=== PATIENT | male | born 1990 | race American Indian/Alaskan Native ===

== ENCOUNTER 2017-01-24 06:35 | Emergency (ER) | payer SELFPAY ==
[2017-01-24 07:05] VITALS: BP 129/71
--- NOTE | 2017-01-24 08:15 | Emergency Department Report ---
HPI - General Chief Complaint: Back Pain/Injury Time Seen by Provider: 01/24/17 07:50 - HPI HPI: he is a 26-year-old male with no prior medical condition presents to ED complaining of throbbing a cane showed a back pain right sided that initially started in September. Patient states he is back shoulder began hurting about 2 days ago. Patient states he has not had any trauma recently or strenuous activity. Patient states he most likely moves his hand a lot at work. Patient states pain is aggravated with movement of the right arm. He denies any fever/chills/vomiting/back pain/abdominal pain ED Past Medical Hx - Past Medical History Previous Medical History?: No - Surgical History Past Surgical History?: No - Social History Smoking Status: Unknown if ever smoked Substance Use Type: None - Medications Home Medications: Home Medications Medication Instructions Recorded Confirmed Last Taken Type Cyclobenzaprine [Flexeril] 10 mg PO QHS PRN #20 tablet 01/24/17 Unknown Rx Ibuprofen [Motrin] 800 mg PO Q8HR PRN #30 tablet 01/24/17 Unknown Rx ED Review of Systems ROS: Stated complaint: BACK PAIN Other details as noted in HPI Constitutional: denies: chills, fever Eyes: denies: eye pain, eye discharge, vision change ENT: denies: ear pain, throat pain Respiratory: denies: cough, shortness of breath, wheezing Cardiovascular: denies: chest pain, palpitations Endocrine: no symptoms reported Gastrointestinal: denies: abdominal pain, nausea, diarrhea Genitourinary: denies: urgency, dysuria Musculoskeletal: myalgia. denies: back pain, joint swelling, arthralgia Skin: denies: rash, lesions Neurological: denies: headache, weakness, paresthesias Psychiatric: denies: anxiety, depression Hematological/Lymphatic: denies: easy bleeding, easy bruising Physical Exam - Physical Exam Vital Signs: Vital Signs 01/24/17 01/24/17 07:03 07:06 Temperature 97.9 F 97.9 F Pulse Rate 71 79 Respiratory 18 18 Rate Blood Pressure 129/71 129/71 O2 Sat by Pulse 97 96 Oximetry Physical Exam: GENERAL: Alert and oriented x3, no apparent distress, Normal Gait, atraumatic. HEAD: Head is normocephalic and a-traumatic. NECK: Supple. Non edematous, . No lymphadenopathy or thyromegaly. No C-spine tenderness LUNGS: Symetrical with respiration, No wheezing, no rales or crackles, CTAB. HEART: S1, S2 present, regular rate and rhythm without murmur, no rubs, no gallops. Non tender to palpation ABDOMEN: No organomegaly ,No pulsatile masses, nontender to palpation on all quadrant EXTREMITIES/MUSCULOSKELETAL: No cyanosis, clubbing, rash, lesions or edema. Full ROM bilaterally. UE/LE Pulses 2+ bilaterally. LE and UE 5+ strength bilaterally, pain with active range of motion of the right scapular region with elevation of the right arm. No injuries, no spinal tenderness on normal range of motion of the back. NEUROLOGIC: The patient is cooperative with no focal neurologic deficits. Normal speech. Normal sensation in bilateral upper and lower extremities, No loss of sensation, ED Course Vital Signs 01/24/17 01/24/17 07:03 07:06 Temperature 97.9 F 97.9 F Pulse Rate 71 79 Respiratory 18 18 Rate Blood Pressure 129/71 129/71 O2 Sat by Pulse 97 96 Oximetry ED Medical Decision Making - Medical Decision Making 26-year-old male presents with strain of the scapular region ED course: Patient was not medicating ED to the fact that he is driving home Discussed patient go home and last picker prescriptions and take as prescribed Discussed no shortness activity for one day and to rest showed a back. Discussed to follow up with primary care physician. Discussed patient is symptoms worsen or new symptoms arise to return to the ED Vital signs are normal patient is in no acute distress patient understands instructions given. Critical care attestation.: If time is entered above; I have spent that time in minutes in the direct care of this critically ill patient, excluding procedure time. ED Disposition Clinical Impression: Strain of other muscles, fascia and tendons at shoulder and upper arm level, left arm, initial encounter Disposition: TO HOME OR SELFCARE Is pt being admited?: No Does the pt Need Aspirin: No Condition: Stable Instructions: Muscle Strain (ED), Musculoskeletal Pain (ED), Heat Pack Application (ED) Additional Instructions: No strenuous activities for 1-2 days If symptoms worsen return to ED Prescriptions: Cyclobenzaprine [Flexeril] 10 mg PO QHS PRN #20 tablet PRN Reason: Muscle Spasm Ibuprofen [Motrin] 800 mg PO Q8HR PRN #30 tablet PRN Reason: Pain Referrals: PRIMARY CARE, [Primary Care Provider] - 3-5 Days [facility] [Outside] - 3-5 Days [facility] [Outside] - 3-5 Days [facility] [Outside] - 3-5 Days Forms: Work/School Release Form(ED) Time of Disposition: 08:15
== END 2017-01-24 08:29 | disposition home or self-care (01) ==
LOC: ED 06:35
DX: S46.912A Strain of unspecified muscle, fascia and tendon at shoulder and upper arm level, left arm, initial encounter (principal); X58.XXXA Exposure to other specified factors, initial encounter; Y93.89 Activity, other specified; Y92.89 Other specified places as the place of occurrence of the external cause; Y99.8 Other external cause status
CPT/HCPCS: 99282